=== PATIENT | female | born 1965 | race Caucasian/White ===

== ENCOUNTER 2023-10-12 15:18 | Emergency (ER) | payer OTHER, SELFPAY ==
[2023-10-12 15:23] VITALS: BP 129/94; PULSE 94; RESP 16; TEMP 36.4; O2SAT 97
[2023-10-12 15:29] VITALS: RESP 16
--- NOTE | 2023-10-12 17:53 | W.ED.GENAD ---
HPI General Stated Complaint: Dizzy/Sync Mode of arrival: ambulatory. RADHA: 3 Date/Time Provider Initiated Documentation: 10/12/23 15:34. Limitations to Documentation: no limitations. Information obtained by: patient, RN notes reviewed and old records reviewed. HPI Narrative: 58-year-old female presents to the ER with chief complaint of palpitations chills headache and seeing stars which she attributes to recent change in her medication she was recently taken off chlorthalidone 3 days ago and changed to hydroxyzine which she has not taken yet. She also takes levothyroxine, trazodone and lisinopril daily which she did take. She has not taken the trazodone she only takes that at night. She denies any vomiting, chest pain. She does endorse loose stools and nausea. She reports that her symptoms have since resolved. Past medical history includes hypertension, depression, insomnia On exam she is alert and oriented x 4, no focal neurodeficits noted abdomen is soft nontender with palpation. She is not vaccinated for COVID. She does have a cough. No wheezing Related Data Home Medications Medication Instructions Recorded Confirmed chlorthalidone 25 mg tablet 25 mg PO DAILY 10/12/23 10/12/23 hydroxyzine HCl 25 mg tablet 25 mg PO Q6H PRN 10/12/23 10/12/23 levothyroxine 100 mcg capsule 100 mcg PO DAILY 10/12/23 10/12/23 lisinopril 40 mg tablet 40 mg PO DAILY 10/12/23 10/12/23 trazodone 100 mg tablet 100 mg PO QHS PRN 10/12/23 10/12/23 triamcinolone acetonide 0.1 % 1 applic topical BID 10/12/23 10/12/23 topical cream Allergies Allergy/AdvReac Type Severity Reaction Status Date / Time codeine Allergy Severe Unverified 10/12/23 15:35 latex Allergy Severe Unverified 10/12/23 15:35 Review of Systems All systems reviewed & are unremarkable except as noted in HPI and below PFSH All Active Problems (Updated 10/12/23 @ 21:53 by Sasha Harris NP) Adverse drug experience (Acute) Dizziness (Acute) Social History Smoking/Tobacco Use Status: Current every day Tobacco Type: cigarettes Smoking risk assessment performed?: Yes Alcohol Intake: never Substance use type: does not use Housing: homeless Do you feel safe at home: Yes Do you feel safe in your relationship?: Yes Exam Narrative Exam Narrative: Constitutional: Alert and oriented x3. Appears stated age. Obese body habitus. Head: Normocephalic, no trauma. Eyes: Pupils PERRL, Red reflex noted, EOM's intact. Eyelids symmetrical without lesions, discharge, or swelling. ENT: Bilateral TM's WNL, External ear normal to inspection, no mastoid TTP, swelling, or erythema, Nasal turbinates WNL, no nasal discharge. , Posterior pharynx WNL, no exudate. Chest: RRR, Normal S1, S2, distal pulses intact. Dry mucous membranes. Resp: Lungs clear to auscultation bilaterally, no wheezes, rales, or rhonchi. Abdomen: Soft, non-distended, Normoactive bowel sounds all 4 quads. Musculoskeletal: Normal gait, 5/5 strength to all four extremities. Skin: No suspicious rashes or lesions. Capillary refill less than 2 sec. Neurologic: Cranial nerves II-XII intact. Alert and oriented x 3. Motor: No deficits noted. Sensory: Intact bilaterally all 4 extremities. Reflexes: DTR's intact bilaterally.. Hematologic/Lymphatic: No ecchymosis, no lymphadenopathy. Course Vital Signs Vital signs: Vital Signs Temperature 36.4 C L 10/12/23 15:23 Pulse 94 H 10/12/23 15:23 Respiratory Rate 16 10/12/23 15:23 Blood Pressure 129/94 H 10/12/23 15:23 Pulse Oximetry 97 10/12/23 15:23 Temperature 36.4 C L 10/12/23 15:23 Temperature Source Oral 10/12/23 15:23 Pulse 94 H 10/12/23 15:23 Respiratory Rate 16 10/12/23 15:29 Respiratory Effort Normal 10/12/23 15:29 Respiratory Depth Normal 10/12/23 15:29 Blood Pressure 129/94 H 10/12/23 15:23 Pulse Oximetry 97 10/12/23 15:23 Oxygen Delivery Method Room Air 10/12/23 15:23 Oxygen Flow Rate 0 10/12/23 15:23 Medical Decision Making 58-year-old female presents to the ER with chief complaint of palpitations chills headache and seeing stars which she attributes to recent change in her medication she was recently taken off chlorthalidone 3 days ago and changed to hydroxyzine which she has not taken yet. She also takes levothyroxine, trazodone and lisinopril daily which she did take. She has not taken the trazodone she only takes that at night. She denies any vomiting, chest pain. She does endorse loose stools and nausea. She reports that her symptoms have since resolved. Past medical history includes hypertension, depression, insomnia On exam she is alert and oriented x 4, no focal neurodeficits noted abdomen is soft nontender with palpation. She is not vaccinated for COVID. She does have a cough. No wheezing Basic workup ordered including CBC CMP, urinalysis and a liter of fluids. At this time her symptoms have resolved. Differential diagnosis includes not limited to dehydration, anxiety, adverse reaction to medication Labs are largely within normal limits, patient has had no further palpitations during her stay here. She has remained hemodynamically stable throughout the remainder of her stay. This text was generated using [employer] dictation system, please disregard any oddities of phrase or misspellings. Lab Data Lab results reviewed: Yes I reviewed the patient's lab results. Labs: Laboratory Tests Range/Units 10/12/23 10/12/23 18:05 18:07 WBC (4.4-10.8) 10^3/uL 10.15 RBC (3.93-5.22) 10^6/uL 5.04 Hgb (11.2-15.7) g/dL 15.0 Hct (36.0-46.0) % 45.4 MCV (80-95) fL 90 MCH (27.0-33.0) pg 29.8 MCHC (32.0-36.0) % 33.0 RDW (11.7-14.6) % 12.6 Plt Count (130-400) 10^3/uL 296 MPV (8.0-11.0) fL 10.6 Immature Gran % 0.3 Neutrophils % 63.4 Lymphocytes % 24.9 Monocytes % 8.3 Eosinophils % 2.4 Basophils % 0.7 Nucleated RBC % (0.0-0.3) % 0.0 Absolute Neutrophils (1.2-6.7) 10^3/uL 6.44 Absolute Lymphocytes (1.2-3.4) 10^3/uL 2.53 Absolute Monocytes (0.1-0.8) 10^3/uL 0.84 H Absolute Eosinophils (0.0-0.7) 10^3/uL 0.24 Absolute Basophils (0.0-0.2) 10^3/uL 0.07 Sodium (136-145) mmol/L 141 Potassium (3.5-5.1) mmol/L 3.6 Chloride (98-107) mmol/L 104 Carbon Dioxide (21.0-32.0) mmol/L 31.9 Anion Gap (3-11) mmol/L 5.1 BUN (7-18) mg/dL 17 Creatinine (0.55-1.02) mg/dL 1.0 Est GFR (CKD-EPI 2020) (mL/min/1.73m2) 66.12 Glucose (74-106) mg/dL 101 Calcium (8.5-10.1) mg/dL 9.8 Total Bilirubin (0.2-1.0) mg/dL 0.4 AST (15-37) U/L 13 L ALT (14-59) U/L 20 Alkaline Phosphatase (46-116) U/L 64 Total Protein (6.4-8.2) g/dL 7.6 Albumin (3.4-5.0) g/dL 4.0 Urine Color (Yellow) Yellow Urine Clarity (Clear) Clear Urine pH (5-8) 6.0 Ur Specific [place] (1.005-1.025) 1.025 Urine Protein (Negative) mg/dL Negative Urine Ketones (Negative) mg/dL Negative Urine Blood (Negative) Negative Urine Nitrite (Negative) Negative Urine Bilirubin (Negative) Negative Urine Urobilinogen (Up to 0.2) mg/dL 2.0 H Ur Leukocyte Esterase (Negative) Negative Urine Glucose (Negative) mg/dL Negative Quality:SDOH Health Related Social Needs: No Data to Display Discharge Plan Disposition Patient Disposition: Home Condition: Stable Discharge Details Clinical Impression: Dizziness, Adverse drug experience Primary Care Provider: Sally,Local ED Provider: Sasha Harris Home Meds and New Rx's Prescriptions: No Action chlorthalidone 25 mg tablet 25 mg PO DAILY levothyroxine 100 mcg capsule 100 mcg PO DAILY lisinopril 40 mg tablet 40 mg PO DAILY trazodone 100 mg tablet 100 mg PO QHS PRN triamcinolone acetonide 0.1 % cream 1 applic topical BID hydroxyzine HCl 25 mg tablet 25 mg PO Q6H PRN Discharge Instructions Instructions: Dizziness (ED) Additional Instructions: Please discuss your symptoms with your prescribing provider. At this time your labs are largely within normal limits. Follow up with primary care provider in 3-5 days. Return to ED sooner if any worsening or concerns. Increase oral fluids. Please take Tylenol or Ibuprofen with food every 4-6 hours as needed for pain and swelling. Discharge Data Discharge Date/Time-TO BE ENTERED AT DEPARTURE: 10/12/23 19:52
[2023-10-12] MEDS: Normal Saline 1,000 ML 1000 ML IV (18:18)
[2023-10-12 18:24] LABS: Abs Immature Grans 0.03 10^3/uL (0.0-0.06); Absolute Basophil Count 0.07 10^3/uL (0.0-0.2); Absolute Eosinophil Count 0.24 10^3/uL (0.0-0.7); Absolute Lymphocyte Count 2.53 10^3/uL (1.2-3.4); Absolute Monocyte Count 0.84 10^3/uL (0.1-0.8); Absolute Neutrophil Count 6.44 10^3/uL (1.2-6.7); Basophils % 0.7; Eosinophils % 2.4; HCT 45.4 % (36.0-46.0); Immature Grans % 0.3; Lymphocytes % 24.9; MCH 29.8 pg (27.0-33.0); MCV 90 fL (80-95); MPV 10.6 fL (8.0-11.0); Monocytes % 8.3; Neutrophils % 63.4; Platelet Count 296 10^3/uL (130-400); RBC 5.04 10^6/uL (3.93-5.22); RDW 12.6 % (11.7-14.6); RDW-SD 41.8 fL; WBC 10.15 10^3/uL (4.4-10.8)
[2023-10-12 18:35] LABS: Bilirubin Negative (Negative); Blood Negative (Negative); Clarity Clear (Clear); Glucose Negative (Negative); Ketones Negative (Negative); Leukocyte Esterase Negative (Negative); Nitrite Negative (Negative); Specific Gravity 1.025 (1.005-1.025)
[2023-10-12 18:43] LABS: ALT 20 U/L (14-59); AST 13 U/L (15-37); Alkaline Phosphatase 64 U/L (46-116); Anion Gap 5.1 mmol/L (3-11); BUN 17 mg/dL (7-18); Bilirubin, Total 0.4 mg/dL (0.2-1.0); CO2 31.9 mmol/L (21.0-32.0); Calcium 9.8 mg/dL (8.5-10.1); Chloride 104 mmol/L (98-107); Estimated GFR 66.12 (mL/min/1.73m2); Glucose 101 mg/dL (74-106); Potassium 3.6 mmol/L (3.5-5.1); Sodium 141 mmol/L (136-145); Total Protein 7.6 g/dL (6.4-8.2)
[2023-10-12 19:52] VITALS: BP 129/94; PULSE 94; RESP 16; TEMP 36.4; O2SAT 97
== END 2023-10-12 19:52 | disposition home or self-care (01) ==
PROVIDERS: Emergency Provider Registered Nurse Emergency
DX: R68.83 Chills (without fever) (principal); R42 Dizziness and giddiness; R00.2 Palpitations; I10 Essential (primary) hypertension; F17.210 Nicotine dependence, cigarettes, uncomplicated
CPT/HCPCS: 80053; 87426; 96360; 99283; 81003; 85025